=== PATIENT | male | born 1965 | race African-American/Black ===

== ENCOUNTER 2020-03-28 04:04 | Inpatient (IN) | payer BC, SELFPAY ==
[2020-03-28 04:49] LABS: #Basophils 0.1 thou/uL (0.0-0.2); #Eosinphils 0.1 thou/uL (0.0-0.7); #Lymphocytes 1.9 thou/uL (1.20-3.40); #Neutrophils 10.5 thou/uL (1.40-6.50); %Basophils 0.4 % (0.0-1.0); %Eosinophils 0.5 % (0.0-10.0); %Lymphocytes 14.2 % (21.0-51.0); %Monocytes 7.1 % (0.0-10.0); %Neutrophils 77.8 % (42.0-75.0); Hemoglobin 12.7 g/dL (14.0-18.0); Mean Corpuscular HGB CONC 31.6 g/dL (32.0-36.0); Mean Corpuscular Hemoglobin 27.3 pg (27.0-31.0); Mean Corpuscular Volume 86.5 fL (78.0-98.0); Mean Platelet Volume 9.4 fL (7.4-10.4); Platelet Count 188 thou/uL (130-400); RBC Distribution Width 12.7 % (11.5-14.5); Red Blood Cell (RBC) Count 4.66 mill/uL (4.70-6.10); White Blood Cell (WBC) Count 13.6 thou/uL (4.8-10.8)
[2020-03-28] MEDS ORDERED: Fentanyl 100 MCG/2 ML VIAL ONE ×3 (05:13→05:39)
[2020-03-28 05:23] LABS: Anion Gap 13 mmol/L (10-20); BUN (Urea Nitrogen) 10 mg/dL (8.4-25.7); Calc. Creatinine Clearance 0 mL/min (70-130); Calcium 7.7 mg/dL (7.8-10.44); Carbon Dioxide 18 mmol/L (22-29); Chloride 109 mmol/L (98-107); Estimated GFR-MDRD Greater than 90; Glucose 134 mg/dL (70-105); Potassium 4.2 mmol/L (3.5-5.1); Sodium 136 mmol/L (136-145)
[2020-03-28] MEDS ORDERED: Fentanyl 250 MCG/5 ML VIAL ONE (06:54)
[2020-03-28] MEDS ORDERED: Phenylephrine 10 MG/ML VIAL ONE (07:07)
[2020-03-28] MEDS ORDERED: cefOXitin Sodium/Dextrose 2 GM/50 ML BAG ONE (07:42)
--- NOTE | 2020-03-28 08:59 | RAD ---
ABDOMEN 1 VIEW: HISTORY: Abnormal lactic acid. Evaluate for free air. COMPARISON: None. FINDINGS: There is contrast within the urinary bladder. Evaluation for free air is limited as the hemidiaphrag ms were not interrogated and out of the field of view. No dilated air-filled loops of large or small bowel. No abnormal calcifications project over the sebastián al shadows. IMPRESSION: 1. Evaluation for free air is limited without evaluation of the hemidiaphragms or decubitus view. D ecubitus view or upright radiograph is recommended. 2. Abnormal density along the left hemiabdomen also extending out of the field of view may be dilate d loops of bowel. Again, a repeat radiograph or CT of the abdomen or pelvis is recommended. POS: HOME
[2020-03-28] MEDS ORDERED: Ondansetron HCl/PF 4 MG/2 ML Vial IVP PRN (09:37)
[2020-03-28] MEDS ORDERED: HYDROmorphone 2 MG/ML VIAL SLOW IVP PRN (09:37)
[2020-03-28] MEDS ORDERED: PACU-Morphine 4MG/ML VIAL SLOW IVP PRN (09:37)
[2020-03-28] MEDS ORDERED: Promethazine HCl 25 MG/ML VIAL IM PRN (09:37)
[2020-03-28] MEDS ORDERED: Promethazine HCl 25 MG/ML VIAL SLOW IVP PRN (09:37)
[2020-03-28] MEDS ORDERED: Lidocaine 1% PF 5 ML VIAL ONE (10:11)
[2020-03-28] MEDS ORDERED: PROPOFOL 200 MG/20 ML VIAL ONE (10:11)
[2020-03-28] MEDS ORDERED: Ondansetron PF 4 MG/2 ML Vial ONE (10:11)
[2020-03-28] MEDS ORDERED: Rocuronium Bromide 10 MG/ML (10ML VIAL) ONE (10:11)
[2020-03-28] MEDS ORDERED: PHENYLEPHRINE-NS 100 MCG/ML 10 ML SYRINGE ONE (10:11)
[2020-03-28] MEDS ORDERED: Glycopyrrolate 0.2 MG/ML 5 ML SYRINGE ONE (10:11)
[2020-03-28] MEDS ORDERED: Dextrose 50% Abboject 50 ML SYRINGE SLOW IVP PRN (10:21)
[2020-03-28] MEDS ORDERED: Ondansetron ODT 4 MG TAB PO PRN (10:21)
[2020-03-28] MEDS ORDERED: Dextrose 5% in Water 1,000 ML IV PRN (10:21)
[2020-03-28] MEDS ORDERED: Ondansetron PF 4 MG/2 ML Vial IVP PRN (10:21)
[2020-03-28] MEDS ORDERED: Famotidine/PF 20 mg/2ml Vial SLOW IVP SCH (10:30)
[2020-03-28] MEDS: Sodium Chloride 0.9% 1,000 ML IV SCH ×2 (11:23→18:23)
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
[2020-03-28] MEDS ORDERED: Cyclobenzaprine 10 MG TAB PO PRN (15:05)
[2020-03-28] MEDS ORDERED: traMADol HCl 50 MG TAB PO PRN (15:05)
[2020-03-28] MEDS: Acetaminophen 325 MG TAB PO SCH ×2 (15:31→20:20)
[2020-03-28] MEDS: traMADol HCl 50 MG TAB PO PRN ×2 (15:32→21:16)
[2020-03-28] MEDS ORDERED: Temazepam 15 MG CAP PO PRN (18:30)
[2020-03-28 19:54] LABS: Magnesium 1.8 mg/dL (1.6-2.6); Phosphorus 2.2 mg/dL (2.3-4.7)
[2020-03-28] MEDS: Senokot S 8.6-50 MG TAB PO SCH (20:20)
[2020-03-28] MEDS: Gabapentin 300 MG CAP PO SCH (20:20)
[2020-03-28] MEDS: Famotidine/PF 20 mg/2ml Vial SLOW IVP SCH (20:20)
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
[2020-03-29] MEDS: Acetaminophen 325 MG TAB PO SCH ×4 (03:00→20:31)
[2020-03-29 05:18] LABS: #Lymphocytes 2.9 thou/uL (1.20-3.40); #Monocytes 1.1 thou/uL (0.11-0.59); #Neutrophils 6.4 thou/uL (1.40-6.50); %Basophils 0.5 % (0.0-1.0); %Eosinophils 0.4 % (0.0-10.0); %Lymphocytes 27.8 % (21.0-51.0); %Monocytes 10.2 % (0.0-10.0); %Neutrophils 61.1 % (42.0-75.0); Mean Corpuscular HGB CONC 32.1 g/dL (32.0-36.0); Mean Corpuscular Hemoglobin 27.8 pg (27.0-31.0); Mean Corpuscular Volume 86.7 fL (78.0-98.0); Mean Platelet Volume 9.3 fL (7.4-10.4); Platelet Count 176 thou/uL (130-400); RBC Distribution Width 12.6 % (11.5-14.5); Red Blood Cell (RBC) Count 3.94 mill/uL (4.70-6.10); White Blood Cell (WBC) Count 10.5 thou/uL (4.8-10.8)
[2020-03-29 05:36] LABS: Anion Gap 10 mmol/L (10-20); BUN (Urea Nitrogen) 11 mg/dL (8.4-25.7); Calc. Creatinine Clearance 127 mL/min (70-130); Calcium 7.6 mg/dL (7.8-10.44); Carbon Dioxide 23 mmol/L (22-29); Chloride 110 mmol/L (98-107); Estimated GFR-MDRD Greater than 90; Glucose 113 mg/dL (70-105); Magnesium 1.9 mg/dL (1.6-2.6); Potassium 3.6 mmol/L (3.5-5.1); Sodium 139 mmol/L (136-145)
[2020-03-29 05:43] LABS: Phosphorus 1.8 mg/dL (2.3-4.7)
[2020-03-29] MEDS ORDERED: Magnesium Sulfate 3 GM in Sodium Chloride 0.9% 250 ML 250 ML IVPB SCH (06:30)
[2020-03-29] MEDS ORDERED: Potassium Phosphate 30 MMOL in Sodium Chloride 0.9% 250 ML 250 ML IVPB SCH (06:30)
[2020-03-29] MEDS: Citalopram 20 MG TAB PO SCH (08:13)
[2020-03-29] MEDS: Atorvastatin Calcium 10 MG TAB PO SCH (08:13)
[2020-03-29] MEDS: Polyethylene Glycol 3350 17 GM Packet PO SCH (08:14)
[2020-03-29] MEDS: Famotidine/PF 20 mg/2ml Vial SLOW IVP SCH ×2 (08:14→20:27)
[2020-03-29] MEDS: Amlodipine 5 MG TAB PO SCH (08:14)
[2020-03-29] MEDS: traMADol HCl 50 MG TAB PO PRN ×3 (08:14→20:26)
[2020-03-29] MEDS: Gabapentin 300 MG CAP PO SCH ×3 (08:14→20:25)
[2020-03-29] MEDS: Senokot S 8.6-50 MG TAB PO SCH ×2 (08:14→20:25)
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
[2020-03-29 13:55] LABS: Bacteria/HPF None Seen HPF (None Seen); Bilirubin Negative (Negative); Blood, Urine Negative (Negative); Clarity Clear (Clear); Glucose, Urine (Dipstick) Normal (Negative); Ketone, Urine Negative (Negative); Leukocyte Negative Leu/uL (Negative); Nitrite Negative (Negative); Protein, Urine (Dipstick) Negative (Neg-Trace); RBC/HPF 0-3 HPF (0-3); Specific Gravity, Urine 1.015 (1.002-1.036); Squamous Epithelial None Seen HPF (0-3); Urobilinogen Normal mg/dL (Less than 2); WBC/HPF None Seen HPF (0-3); pH, Urine 5.5 (5.0-9.0)
[2020-03-29 14:00] LABS: Urine Culture Reflex No No
[2020-03-30] MEDS: Acetaminophen 325 MG TAB PO SCH ×4 (05:10→20:35)
[2020-03-30] MEDS: traMADol HCl 50 MG TAB PO PRN ×3 (05:11→21:35)
[2020-03-30] MEDS ORDERED: Potassium Phosphate 30 MMOL in Sodium Chloride 0.9% 500 ML IVPB SCH (08:00)
[2020-03-30] MEDS: Polyethylene Glycol 3350 17 GM Packet PO SCH (08:55)
[2020-03-30] MEDS: Atorvastatin Calcium 10 MG TAB PO SCH (08:56)
[2020-03-30] MEDS: Amlodipine 5 MG TAB PO SCH (08:56)
[2020-03-30] MEDS: Gabapentin 300 MG CAP PO SCH ×3 (08:56→20:35)
[2020-03-30] MEDS: Senokot S 8.6-50 MG TAB PO SCH ×2 (08:56→20:35)
[2020-03-30] MEDS: Famotidine/PF 20 mg/2ml Vial SLOW IVP SCH ×2 (08:57→20:34)
[2020-03-30] MEDS: Citalopram 20 MG TAB PO SCH (08:57)
[2020-03-30 09:14] VITALS: BMI 33.7
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
[2020-03-30] MEDS: Enoxaparin Sodium 30 MG/0.3 ML SYRINGE SC SCH (20:34)
[2020-03-31] MEDS: Acetaminophen 325 MG TAB PO SCH ×4 (03:26→19:50)
[2020-03-31 05:21] LABS: #Basophils 0.1 thou/uL (0.0-0.2); #Eosinphils 0.2 thou/uL (0.0-0.7); #Lymphocytes 2.2 thou/uL (1.20-3.40); #Monocytes 0.8 thou/uL (0.11-0.59); #Neutrophils 5.2 thou/uL (1.40-6.50); %Basophils 0.7 % (0.0-1.0); %Eosinophils 2.5 % (0.0-10.0); %Lymphocytes 25.4 % (21.0-51.0); %Monocytes 9.6 % (0.0-10.0); %Neutrophils 61.9 % (42.0-75.0); Hemoglobin 11.2 g/dL (14.0-18.0); Mean Corpuscular HGB CONC 32.2 g/dL (32.0-36.0); Mean Corpuscular Hemoglobin 27.8 pg (27.0-31.0); Mean Corpuscular Volume 86.3 fL (78.0-98.0); Mean Platelet Volume 9.4 fL (7.4-10.4); Platelet Count 208 thou/uL (130-400); RBC Distribution Width 12.3 % (11.5-14.5); Red Blood Cell (RBC) Count 4.01 mill/uL (4.70-6.10); White Blood Cell (WBC) Count 8.5 thou/uL (4.8-10.8)
[2020-03-31 05:45] LABS: Anion Gap 13 mmol/L (10-20); BUN (Urea Nitrogen) 5 mg/dL (8.4-25.7); Calc. Creatinine Clearance 153 mL/min (70-130); Calcium 8.5 mg/dL (7.8-10.44); Carbon Dioxide 25 mmol/L (22-29); Chloride 104 mmol/L (98-107); Estimated GFR-MDRD Greater than 90; Glucose 94 mg/dL (70-105); Magnesium 2.1 mg/dL (1.6-2.6); Phosphorus 3.2 mg/dL (2.3-4.7); Potassium 3.9 mmol/L (3.5-5.1); Sodium 138 mmol/L (136-145)
[2020-03-31] MEDS: Polyethylene Glycol 3350 17 GM Packet PO SCH (08:51)
[2020-03-31] MEDS: Famotidine 20 MG TAB PO SCH ×2 (08:51→19:50)
[2020-03-31] MEDS: Gabapentin 300 MG CAP PO SCH ×3 (08:51→19:50)
[2020-03-31] MEDS: traMADol HCl 50 MG TAB PO PRN ×2 (08:51→15:33)
[2020-03-31] MEDS: Enoxaparin Sodium 30 MG/0.3 ML SYRINGE SC SCH ×2 (08:51→19:50)
[2020-03-31] MEDS: Atorvastatin Calcium 10 MG TAB PO SCH (08:52)
[2020-03-31] MEDS: Senokot S 8.6-50 MG TAB PO SCH ×2 (08:52→19:50)
[2020-03-31] MEDS: Citalopram 20 MG TAB PO SCH (08:52)
[2020-03-31] MEDS: Amlodipine 5 MG TAB PO SCH (08:52)
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
[2020-03-31] MEDS ORDERED: Morphine 4 MG/ML VIAL SLOW IVP SCH (19:45)
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
[2020-04-01] MEDS: Acetaminophen 325 MG TAB PO SCH ×2 (03:26→08:38)
[2020-04-01 05:15] LABS: #Basophils 0.1 thou/uL (0.0-0.2); #Eosinphils 0.2 thou/uL (0.0-0.7); #Lymphocytes 2.1 thou/uL (1.20-3.40); #Neutrophils 6.4 thou/uL (1.40-6.50); %Basophils 0.9 % (0.0-1.0); %Eosinophils 2.5 % (0.0-10.0); %Lymphocytes 21.1 % (21.0-51.0); %Monocytes 9.8 % (0.0-10.0); %Neutrophils 65.7 % (42.0-75.0); Hemoglobin 11.6 g/dL (14.0-18.0); Mean Corpuscular HGB CONC 32.3 g/dL (32.0-36.0); Mean Corpuscular Hemoglobin 28.1 pg (27.0-31.0); Mean Corpuscular Volume 86.9 fL (78.0-98.0); Mean Platelet Volume 8.2 fL (7.4-10.4); Platelet Count 259 thou/uL (130-400); RBC Distribution Width 12.4 % (11.5-14.5); Red Blood Cell (RBC) Count 4.13 mill/uL (4.70-6.10); White Blood Cell (WBC) Count 9.7 thou/uL (4.8-10.8)
[2020-04-01 05:39] LABS: Anion Gap 13 mmol/L (10-20); BUN (Urea Nitrogen) 6 mg/dL (8.4-25.7); Calc. Creatinine Clearance 143 mL/min (70-130); Calcium 8.9 mg/dL (7.8-10.44); Carbon Dioxide 25 mmol/L (22-29); Chloride 103 mmol/L (98-107); Estimated GFR-MDRD Greater than 90; Glucose 102 mg/dL (70-105); Magnesium 2.1 mg/dL (1.6-2.6); Potassium 3.7 mmol/L (3.5-5.1); Sodium 137 mmol/L (136-145)
[2020-04-01] MEDS: Enoxaparin Sodium 30 MG/0.3 ML SYRINGE SC SCH (08:38)
[2020-04-01] MEDS: Amlodipine 5 MG TAB PO SCH (08:38)
[2020-04-01] MEDS: Citalopram 20 MG TAB PO SCH (08:38)
[2020-04-01] MEDS: Atorvastatin Calcium 10 MG TAB PO SCH (08:38)
[2020-04-01] MEDS: Senokot S 8.6-50 MG TAB PO SCH (08:39)
[2020-04-01] MEDS: Polyethylene Glycol 3350 17 GM Packet PO SCH (08:39)
[2020-04-01] MEDS: Famotidine 20 MG TAB PO SCH (08:39)
[2020-04-01] MEDS: Gabapentin 300 MG CAP PO SCH (08:39)
[2020-04-01 11:24] VITALS: BP 157/97; TEMP 98.6
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
== END 2020-04-01 12:30 | disposition home or self-care (01) | DRG 329 ==
LOC: ERS 04:04 → SDC 07:17 → SURG A 10:36
PROVIDERS: ADMIT Surgery; ATTEND Surgery
PROC: 0DQA0ZZ Repair Jejunum, Open Approach (ICD-10-PCS; principal; 2020-03-28)
PROC: 0DQN0ZZ Repair Sigmoid Colon, Open Approach (ICD-10-PCS; 2020-03-28)
PROC: 0DQV0ZZ Repair Mesentery, Open Approach (ICD-10-PCS; 2020-03-28)
DX: S36.498A Other injury of other part of small intestine, initial encounter (principal); S31.634A Puncture wound without foreign body of abdominal wall, left lower quadrant with penetration into peritoneal cavity, initial encounter; K65.9 Peritonitis, unspecified; S36.593A Other injury of sigmoid colon, initial encounter; S36.898A Other injury of other intra-abdominal organs, initial encounter; W01.0XXA Fall on same level from slipping, tripping and stumbling without subsequent striking against object, initial encounter; F41.9 Anxiety disorder, unspecified; F32.9 Major depressive disorder, single episode, unspecified; I10 Essential (primary) hypertension; E78.5 Hyperlipidemia, unspecified; E83.39 Other disorders of phosphorus metabolism; Z79.899 Other long term (current) drug therapy
CPT/HCPCS: 36415; 36600; 74018; 80048; 81001; 83735; 84100; 85025; 86850; 86900; 86901; 96374; G0390; J0694; J1650; J2270; J2370; J2405; J2704; J3010; J3475; J7030; J7050; S0028